=== PATIENT | female | born 1965 ===

== ENCOUNTER 2024-10-29 06:19 | Day surgery (SDC) | payer OTHER, SELFPAY ==
[2024-10-29 07:40] LABS: Glucose - Point of Care 138 mg/dl (70-99)
== END 2024-10-29 09:40 | disposition home or self-care (01) ==
LOC: GI 06:19
PROVIDERS: ATTENDING PHYSICIAN Surgery
DX: Z12.11 Encounter for screening for malignant neoplasm of colon (principal); K64.8 Other hemorrhoids; K57.30 Diverticulosis of large intestine without perforation or abscess without bleeding
CPT/HCPCS: G0121; 82962